=== PATIENT | male | born 1965 | race Caucasian/White ===

== ENCOUNTER 2018-05-13 18:30 | Emergency (ER) | payer BC ==
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
[2018-05-13] MEDS ORDERED: MORPHINE SULFATE 10 MG/ML VIAL IVP ONE (19:03)
[2018-05-13] MEDS ORDERED: AMPICILLIN SODIUM/SULBACTAM NA 3 G in 0.9 % SODIUM CHLORIDE 100ML 100 ML IVPB ONE (19:03)
[2018-05-13 19:18] LABS: BASO % 0.3 % (0-6); EOS % 0.9 % (0-6); HEMATOCRIT 45.2 % (42.0-52.0); HEMOGLOBIN 14.8 gm/dl (14.0-18.0); LYMPH % 18.8 % (16-45); MEAN CELL VOLUME 91.5 fl (81-97); MEAN CORPUSCULAR HGB CONC 32.7 g/dl (32-36); MEAN PLATELET VOLUME 9.6 fl (7.4-10.4); PLATELET COUNT 358 K/uL (130-400); RED BLOOD COUNT 4.94 M/uL (4.40-5.70); WHITE BLOOD COUNT W/O DIFF 11.8 K/uL (4.2-12.2)
[2018-05-13 19:29] LABS: BLOOD UREA NITROGEN 19 mg/dL (6-20); INR 0.9; PARTIAL THROMBOPLASTIN TIME 30.9 SECONDS (24.5-39.1); PROTHROMBIN TIME (PATIENT) 10.1 SECONDS (9.5-12.1)
[2018-05-13 19:30] LABS: CREATININE 0.8 mg/dL (0.7-1.2); EST GLOMERULAR FILTRATION RATE > 60 mL/min; TOTAL PROTEIN 7.7 g/dL (6.6-8.7)
[2018-05-13 19:32] LABS: GLUCOSE,RANDOM 97 mg/dL (74-109)
[2018-05-13 19:35] LABS: ALB/GLOB RATIO 1.5 (1.1-1.8); ALBUMIN 4.6 g/dL (4.0-5.0); ALKALINE PHOSPHATASE 114 U/L (40-129); ALT/SGPT 41 U/L (<41); AST/SGOT 31 U/L (10.0-50.0)
--- NOTE | 2018-05-14 15:03 | CT SCAN REPORT ---
EXAM: CT OF THE FACIAL BONES WITHOUT CONTRAST HISTORY: INJURY. TECHNIQUE: Sequential axial images were obtained through the facial bones without intravenous contrast administration. Sagittal and coronal reformatted images were performed on an independent workstation. FINDINGS: There are bilateral nasal bone fracture deformities with deviation leftward. Nasal septum with mild deviation leftward. The orbital rims are intact. The zygomatic arch is intact. There is a mucosal retention cyst and/ or polyp in the inferior left maxillary sinus and superior right maxillary sinus. There is a minimally displaced left parasymphyseal mandible fracture deformity. There is a fracture deformity of the right mandibular condyle with bayonet apposition of approximately 9.5 mm. There is dislocation of the right mandibular condyle. The cervical spine is intact. IMPRESSION: 1. TRANSVERSE FRACTURE DEFORMITY OF THE RIGHT MANDIBULAR CONDYLE WITH BAYONET APPOSITION OF THE FRACTURE FRAGMENTS OF APPROXIMATELY 9.5 MM. DISLOCATION OF THE RIGHT MANDIBULAR CONDYLE. MINIMALLY DISPLACED LEFT PARASYMPHYSEAL MANDIBULAR FRACTURE DEFORMITY. 2. MINIMAL MAXILLARY SINUS DISEASE. 3. BILATERAL NASAL BONE FRACTURE DEFORMITIES WITH MINIMAL DEVIATION LEFTWARD. JOB NUMBER: [id number] [facility]
== END 2018-05-13 20:01 | disposition short-term general hospital (02) ==
LOC: ER 18:30
DX: S02.611A Fracture of condylar process of right mandible, initial encounter for closed fracture (principal); Y04.0XXA Assault by unarmed brawl or fight, initial encounter
CPT/HCPCS: 70486; 80053; 85025; 85610; 85730; 96365; 96375; 99284; 99285; J0295; J2270